=== PATIENT | male | born 1945 | race Caucasian/White ===

== ENCOUNTER 2018-05-07 14:57 | Outpatient (CLI) | payer MEDICARE ==
--- NOTE | 2018-05-08 09:50 | Ultrasound Report ---
Reason: R RENAL CYST NOTED ON T-SPINE MRI AT [facility] Procedure Date: 05/07/2018 Accession Number: [id number] / [id number] Procedure: US - Retroperitoneal CPT Code: FULL RESULT: EXAM: RENAL ULTRASOUND EXAM DATE: 05/07/2018 04:56 PM. CLINICAL HISTORY: Right renal cyst noted on T-spine MRI at [facility]. COMPARISON: CT N/C/A/P 07/18/2006 1:01 PM. TECHNIQUE: Real-time scanning was performed with static images obtained. FINDINGS: Right Kidney: 11.2 cm. Normal echotexture with no stones or hydronephrosis. A thinly septated cyst measuring up to 3.6 cm is seen in the superior pole and does not demonstrate a soft tissue nodular mural component or vascularity by color Doppler. A second 2.2 cm mid pole cyst appears simple. The 2005 CT demonstrates a posterior midpole cyst which does appear simple, consistent with this examination of the midpole cyst. Left Kidney: 10.7 cm. Normal echotexture with no stone or hydronephrosis. A 1.5 cm upper pole septated cyst without septal thickening or vascularity. A midpole 1.2 cm septated cyst without vascularity on color Doppler. Please note that the 2006 CT demonstrates 1 of the 2 left renal cystic lesions which subjectively does demonstrate septal enhancement and measured up to 1.5 cm. Bladder: Bilateral jets seen. The prevoid bladder volume was 315 cc. The postvoid bladder volume was 294 cc. Other: None. IMPRESSION: The 3.6 cm superior pole right renal cyst does not demonstrate concerning features by ultrasound. Both left renal cysts demonstrate no concerning features by ultrasound alone. Based on the comparison to the 2006 CT, at least 1 of the left renal septated cysts remains suspicious. Definite determination of the absence or presence of contrast enhancement requires a noncontrast phase. The right renal 2.2 cm simple cyst is benign and requires no further follow-up. Recommendation: The Bosniak classification is not well validated or universally accepted for classification of renal cysts. Given the benign sonographic appearance, annual follow-up ultrasound represents a cost effective option given that the left renal mass that subjectively still concerns me has not significantly enlarged in size over the past 12 years. Alternatively, definitive characterization by multiphase MRI or multiphase CT with renal mass protocol in hopes of avoiding further follow-up imaging represents an alternative approach. RADIA
== END 2018-05-07 14:58 | disposition home or self-care (01) ==
LOC: DI 14:57
PROVIDERS: ATTEND Physician Assistant
DX: N28.1 Cyst of kidney, acquired (principal)
CPT/HCPCS: 76770

== ENCOUNTER 2019-04-25 09:44 | Outpatient (CLI) | payer MEDICARE ==
[2019-04-25 10:11] LABS: BASOPHILS # (AUTO) 0.1 10^3/uL (0.0-0.1); BASOPHILS % (AUTO) 0.7 %; EOSINOPHILS # (AUTO) 0.2 10^3/uL (0.0-0.7); EOSINOPHILS % (AUTO) 2.5 %; HGB - HEMOGLOBIN 14.6 g/dL (14.0-18.0); LYMPHOCYTES # (AUTO) 1.1 10^3/uL (1.5-3.5); LYMPHOCYTES % (AUTO) 15.2 %; MEAN CORPUSCULAR HEMOGLOBIN 31.7 pg (27.0-31.0); MEAN CORPUSCULAR HGB CONC 33.6 g/dL (32.0-36.0); MEAN CORPUSCULAR VOLUME 94.6 fL (80.0-94.0); MONOCYTES # (AUTO) 0.7 10^3/uL (0.0-1.0); MONOCYTES % (AUTO) 10.2 %; NEUTROPHILS # (AUTO) 5.1 10^3/uL (1.5-6.6); PLT - PLATELET COUNT 194 10^3/uL (130-450); RED CELL DISTRIBUTION WIDTH 12.9 % (12.0-15.0); WHITE BLOOD COUNT 7.2 x10^3/uL (4.8-10.8)
[2019-04-25 10:23] LABS: ALBUMIN 3.8 g/dL (3.2-5.5); ALBUMIN/GLOBULIN RATIO 1.4 (1.0-2.2); BILIRUBIN,TOTAL 0.8 mg/dL (0.2-1.0); TOTAL PROTEIN 6.6 g/dL (6.7-8.2)
[2019-04-25] MEDS ORDERED: IOVERSOL 320 100 ML VIAL IVP ONE ×2 (10:33→10:53)
--- NOTE | 2019-04-25 13:35 | CT Report ---
Reason: Anterior cervical lymphadenopathy Procedure Date: 04/25/2019 Accession Number: [id number] / [id number] Procedure: CT - SOFT TISSUE NECK W CPT Code: FULL RESULT: EXAM: CT SOFT TISSUE NECK WITH CONTRAST. EXAM DATE: 04/25/2019 10:40 AM. HISTORY: Cervical lymphadenopathy. COMPARISONS: None. TECHNIQUE: Routine soft tissue neck CT protocol. Reconstructions: Coronal and sagittal. IV contrast: 80 mL Optiray 320. In accordance with CT protocol optimization, one or more of the following dose reduction techniques were utilized for this exam: automated exposure control, adjustment of mA and/or KV based on patient size, or use of iterative reconstructive technique. FINDINGS: More numerous cervical lymph nodes than expected for age. Many of these nodes are abnormally enlarged or more prominent than average. Submental midline 8 x 10 mm node. 7 x 14 mm left submandibular node. The largest lymph nodes at level 2 on the right are 12 x 15 and 8 x 12 mm. The largest left level 2 node is 7 x 10 mm. Numerous bilateral rounded contour level 5 lymph nodes are present. One of the larger right level 5 nodes is 9 mm in diameter. One of the larger open claims representative left level 5 nodes is 10 mm in diameter. Prominent bilateral retroclavicular nodes. One of the largest on the right is 8 x 12 mm. One of the largest on the left is 7 x 18 mm. Unremarkable contours of the pharynx and larynx. No evidence for asymmetric enhancing or space-occupying lesion or acute mucosal inflammatory process. Nonspecific punctate calcification in the right thyroid gland. This may be accompanied by a subtle region of hypodense nodularity measuring about 12 mm superiorly in the right thyroid lobe. Unremarkable parotid and submandibular salivary glands. Chronic multilevel hypertrophic degenerative cervical spinal spondylosis. Minimal nonspecific paranasal sinus mucosal thickening without air-fluid level. Grossly clear mastoids. IMPRESSION: 1. Mild nonspecific cervical lymphadenopathy. Reactive/inflammatory node prominence may be present but a malignant process cannot be ruled out. 2. Nonspecific 12 mm right thyroid nodule with adjacent calcification suspected, additional ultrasound characterization is suggested. 3. Multilevel degenerative cervical spinal spondylosis most prominent at the C4-C5 and C5-C6 levels. RADIA
== END 2019-04-25 09:45 | disposition home or self-care (01) ==
LOC: LAB 09:44
PROVIDERS: ATTEND Nurse Practitioner Family
DX: R59.0 Localized enlarged lymph nodes (principal); Z85.72 Personal history of non-Hodgkin lymphomas; E04.1 Nontoxic single thyroid nodule; M47.812 Spondylosis without myelopathy or radiculopathy, cervical region
CPT/HCPCS: 36415; 70491; 80053; 85025; Q9967

== ENCOUNTER 2020-04-03 09:06 | Emergency (ER) | payer MEDICARE ==
[2020-04-03] MEDS ORDERED: SODIUM CHLORIDE 0.9% 1,000 ML IV STA (09:22)
[2020-04-03 09:55] LABS: BASOPHILS % (AUTO) 0.4 %; EOSINOPHILS # (AUTO) 0.1 10^3/uL (0.0-0.7); EOSINOPHILS % (AUTO) 1.2 %; HGB - HEMOGLOBIN 11.4 g/dL (14.0-18.0); LYMPHOCYTES # (AUTO) 0.6 10^3/uL (1.5-3.5); LYMPHOCYTES % (AUTO) 6.1 %; MEAN CORPUSCULAR HEMOGLOBIN 29.5 pg (27.0-31.0); MEAN CORPUSCULAR HGB CONC 32.5 g/dL (32.0-36.0); MEAN CORPUSCULAR VOLUME 90.9 fL (80.0-94.0); MEAN PLATELET VOLUME 8.9 fL (7.4-11.4); MONOCYTES # (AUTO) 1.3 10^3/uL (0.0-1.0); NEUTROPHILS # (AUTO) 7.8 10^3/uL (1.5-6.6); NEUTROPHILS % (AUTO) 78.1 %; PLT - PLATELET COUNT 310 10^3/uL (130-450); RED BLOOD COUNT 3.86 10^6/uL (4.70-6.10)
[2020-04-03 10:03] LABS: INR 1.2 (0.8-1.2); PT - PROTHROMBIN TIME 13.1 secs (9.9-12.6)
[2020-04-03 10:12] LABS: ALBUMIN 3.4 g/dL (3.2-5.5); BILIRUBIN,TOTAL 0.6 mg/dL (0.2-1.0); CALCIUM 8.9 mg/dL (8.5-10.3); CREATININE 1.4 mg/dL (0.6-1.2); TOTAL PROTEIN 6.7 g/dL (6.7-8.2)
[2020-04-03 10:33] LABS: BILIRUBIN,URINE NEGATIVE (NEGATIVE); GLUCOSE, URINE (UA) NEGATIVE (NEGATIVE); KETONES,URINE (UA) NEGATIVE (NEGATIVE); LEUKOCYTE ESTERASE, URINE SMALL (NEGATIVE); NITRITE,URINE NEGATIVE (NEGATIVE); OCCULT BLOOD,URINE SMALL (NEGATIVE); PROTEIN,URINE NEGATIVE (NEGATIVE); UROBILINOGEN,URINE 0.2 (NORMAL) E.U./dL (NORMAL)
[2020-04-03 10:35] LABS: CLARITY,URINE HAZY (CLEAR)
[2020-04-03 10:45] LABS: BACTERIA,URINE Rare /HPF (None Seen); RBC,URINE 0-5 /HPF (0-5); SQUAMOUS EPITHELIAL CELL,UR NONE SEEN (<= Few)
--- NOTE | 2020-04-03 10:45 | XRAY Report ---
PROCEDURE: Chest 1 View X-Ray INDICATIONS: chest pain TECHNIQUE: One view of the chest was acquired. COMPARISON: Lung apices on CT neck 04/25/2019. CXR 04/10/2013. FINDINGS: Surgical changes and devices: None. Lungs and pleura: No pleural effusions or pneumothorax. Lungs are clear. Mediastinum: Mediastinal contours appear normal. Heart size is within normal limits. Bones and chest wall: No suspicious bony lesions. Overlying soft tissues appear unremarkable. IMPRESSION: No acute cardiopulmonary abnormality. Reviewed by: Juwan Jameson MD on 04/03/2020 10:44 AM PDT Approved by: Juwan Jameson MD on 04/03/2020 10:44 AM PDT Station ID: [id number]
--- NOTE | 2020-04-03 11:08 | ED Physician Documentation ---
History of Present Illness - Stated complaint Stated Complaint: FEVER AND WEAKNESS - Chief complaint Chief Complaint: Fever - History obtained from History obtained from: Patient - Additonal information Additional information: Patient comes emergency department complaining of fever that started this morning. He is currently being treated for metastatic bladder cancer with immunomodulators therapy, and is a patient of Dr. Calabrese at [facility]/. The pt denies other specific sx. No cough. No dysuria, back pain, new abdominal pain, or new/worse nausea. No sore throat, rhinorrhea, or new SOB. Pt's last infusion was about 1 week ago. states pt has had fatigue for the past several weeks, and has been mostly spending his days in bed, getting up occasionally. Pt has had L leg edema for the past couple of months, and has not had US. Review of Systems Ten Systems: 10 systems reviewed and negative Constitutional: reports: Fever, Fatigue Eyes: reports: Reviewed and negative Ears: reports: Reviewed and negative Nose: reports: Reviewed and negative Throat: reports: Reviewed and negative Cardiac: reports: Reviewed and negative Respiratory: reports: Reviewed and negative GI: reports: Reviewed and negative : reports: Reviewed and negative Skin: reports: Reviewed and negative Musculoskeletal: reports: Reviewed and negative Neurologic: reports: Reviewed and negative Psychiatric: reports: Reviewed and negative Endocrine: reports: Reviewed and negative Immunocompromised: reports: Reviewed and negative PD PAST MEDICAL HISTORY - Present Medications Home Medications: Ambulatory Orders Medication Instructions Recorded Confirmed Sulfamethox/Trimeth 800/160 1 each PO BID #20 tablet 04/03/20 [Bactrim Ds 800/160] - Allergies Allergies/Adverse Reactions: Allergies Allergy/AdvReac Type Severity Reaction Status Date / Time levofloxacin [From Levaquin] Allergy Anaphylaxis Verified 04/03/20 09:14 PD ED PE NORMAL - Vitals Vital signs reviewed: Yes - General General: Alert and oriented X 3, No acute distress, Well developed/nourished - HEENT HEENT: Atraumatic, PERRL, EOMI, Moist mucous membranes - Neck Neck: Supple, no meningeal sign - Cardiac Cardiac: RRR, No murmur - Respiratory Respiratory: No respiratory distress, Clear bilaterally - Abdomen Abdomen: Normal bowel sounds, Soft, Non tender, Non distended - Derm Derm: Normal color, Warm and dry, No rash - Extremities Extremities: No deformity, No calf tenderness / cord, Other (L leg edema) - Neuro Neuro: Alert and oriented X 3, Other (grossly normal. Pt ambulates to bathroom without difficulty.) - Psych Psych: Normal mood, Normal affect Results - Vitals Vitals: Oxygen O2 Source Room air - Labs Labs: Microbiology 04/03/20 09:46 Blood Culture - Preliminary Blood - Left Arm NO GROWTH AFTER 2 DAYS 04/03/20 09:41 Blood Culture - Preliminary Blood - Right Arm NO GROWTH AFTER 2 DAYS 04/03/20 10:20 Urine Culture - Final Urine,Clean Catch Enterococcus Faecalis. Laboratory Tests 04/03/20 04/03/20 04/03/20 09:41 09:41 09:41 WBC 10.0 RBC 3.86 L Hgb 11.4 L Hct 35.1 L MCV 90.9 MCH 29.5 MCHC 32.5 RDW 13.0 Plt Count 310 MPV 8.9 Neut # (Auto) 7.8 H Lymph # (Auto) 0.6 L [place] # (Auto) 1.3 H Eos # (Auto) 0.1 Baso # (Auto) 0.0 Absolute Nucleated RBC 0.00 Nucleated RBC % 0.0 PT 13.1 H INR 1.2 Sodium 137 Potassium 4.1 Chloride 103 Carbon Dioxide 23 Anion Gap 11.0 BUN 19 Creatinine 1.4 H Estimated GFR (MDRD) 49 L Glucose 113 H Lactic Acid Calcium 8.9 Total Bilirubin 0.6 AST 45 H ALT 65 H Alkaline Phosphatase 191 H Total Protein 6.7 Albumin 3.4 Globulin 3.3 Albumin/Globulin Ratio 1.0 Lipase 24 Urine Color Urine Clarity Urine pH Ur Specific [place] Urine Protein Urine Glucose (UA) Urine Ketones Urine Occult Blood Urine Nitrite Urine Bilirubin Urine Urobilinogen Ur Leukocyte Esterase Urine RBC Urine WBC Ur Squamous Epith Cells Urine Bacteria Ur Microscopic Review Urine Culture Comments 04/03/20 04/03/20 09:41 10:20 WBC RBC Hgb Hct MCV MCH MCHC RDW Plt Count MPV Neut # (Auto) Lymph # (Auto) [place] # (Auto) Eos # (Auto) Baso # (Auto) Absolute Nucleated RBC Nucleated RBC % PT INR Sodium Potassium Chloride Carbon Dioxide Anion Gap BUN Creatinine Estimated GFR (MDRD) Glucose Lactic Acid 1.1 Calcium Total Bilirubin AST ALT Alkaline Phosphatase Total Protein Albumin Globulin Albumin/Globulin Ratio Lipase Urine Color YELLOW Urine Clarity HAZY Urine pH 6.0 Ur Specific [place] 1.010 Urine Protein NEGATIVE Urine Glucose (UA) NEGATIVE Urine Ketones NEGATIVE Urine Occult Blood SMALL H Urine Nitrite NEGATIVE Urine Bilirubin NEGATIVE Urine Urobilinogen 0.2 (NORMAL) Ur Leukocyte Esterase SMALL H Urine RBC 0-5 Urine WBC >25 H Ur Squamous Epith Cells NONE SEEN Urine Bacteria Rare Ur Microscopic Review INDICATED Urine Culture Comments INDICATED - Rads (name of study) CXR Radiology: Final report received, EMP read indepedently, See rad report (Neg) venous US L leg Radiology: Final report received, EMP read indepedently, See rad report (No dvt) RUQ US Radiology: Final report received, EMP read indepedently, See rad report PD MEDICAL DECISION MAKING - ED course Complexity details: reviewed old records, reviewed results, re-evaluated patient, considered differential, d/w patient, d/w family ED course: Pt was worked up extensively for his fever, given his status as a cancer pt on immune modulator therapy. CBC showed a normal WBC count. CMP showed mildly elevated LFTs, so abd US was done to assess for cholecystitis, but none was seen, despite the presence of gall stones. CXR was negative. Pt was also assessed for LLE DVT, given his swelling, and US was negative. UA was mildly positive for infection, so pt was treated for this with IV Rocephin. He was found to be feeling better after IV fluids, and was not febrile here. We have discussed the need for antibiotics at home, which have been prescribed. I have also asked the pt and to call as soon as possible to set up a follow-up appt with the pt's oncologist at [facility] in [place]. If the pt at all feels worse despite antibiotics, he should return immediately. Departure - Departure Disposition: 01 Home, Self Care Clinical Impression: Urinary tract infection Qualifiers: Urinary tract infection type: acute cystitis Hematuria presence: without hematuria Qualified Code(s): N30.00 - Acute cystitis without hematuria Condition: Stable Instructions: ED UTI Cystitis Male Prescriptions: Sulfamethox/Trimeth 800/160 [Bactrim Ds 800/160] 1 each PO BID #20 tablet Comments: Your work-up overall looks good. Your white blood cell count is neither too high nor too low. Your urinalysis does show signs of infection, and you have been started in biotics for this. Please take the antibiotics every day, as directed, and please call your doctor for a follow-up appointment early next week. If anything seems to be getting worse, please return to the emergency department. Discharge Date/Time: 04/03/20 14:58
[2020-04-03] MEDS ORDERED: cefTRIAXone 2 GM in SODIUM CHLORIDE 0.9% MINIBAG 100 ML IV STA (12:57)
--- NOTE | 2020-04-03 13:10 | Ultrasound Report ---
PROCEDURE: Abdomen Limited INDICATIONS: R abd discomfort, elevated LFTs TECHNIQUE: Real-time focused scanning was performed of the abdomen, with image documentation. COMPARISON: Correlation is made with prior retroperitoneal ultrasound dated 05/07/2018. FINDINGS: The liver demonstrates normal size and echogenicity. No liver lesions are detected. Multiple gallstones are seen within the gallbladder neck, which do not appear mobile. The largest of these measures 1.5 x 0.7 cm. The gallbladder wall does not appear thickened. There is no specific pe richolecystic fluid. The sonographic Grimes's sign is negative. Mild biliary dilatation is seen, with the common bile duct measuring 8 mm. The pancreas is poorly seen. The right kidney demonstrates normal length at 13.1 cm. There is moderate hydronephrosis seen. Multip le right renal cysts are seen, with the largest 2 measuring 3.8 cm and 3.2 cm, respectively. The proximal aortic aneurysm is seen, which measures up to 4 cm. The mid and distal aorta are seen, o bscured by bowel gas. The IVC is patent. Overall scan quality is limited by bowel gas and the patient's labored breathing. IMPRESSION: Gallstones can be seen within the gallbladder, without additional sonographic signs of cholecystitis. Mild biliary dilatation is seen, measuring 8 mm. Please correlate with patient presentation, clinica l examination findings, and laboratory values, as appropriate. There is moderate right-sided hydronephrosis. Mild proximal abdominal aortic aneurysm seen, measuring up to 4 cm. Simple appearing right renal cysts are incidentally noted. Reviewed by: Augie Champion MD on 04/03/2020 12:08 PM EDER Approved by: Augie Champion MD on 04/03/2020 12:08 PM EDER Station ID: [id number]
--- NOTE | 2020-04-03 13:11 | Ultrasound Report ---
PROCEDURE: Duplex Ext Veins Left INDICATIONS: pain/swelling TECHNIQUE: Real-time imaging, as well as color and pulse Doppler interrogation, were performed of the lower extr emity deep veins from the inguinal ligament to the popliteal fossa. COMPARISON: None. FINDINGS: The deep veins are normally compressible, and free of intraluminal thrombus. Color and pu lse Doppler demonstrate normal phasic intraluminal flow. There is normal augmentation response to di stal compression maneuver. The calf veins are not well seen. IMPRESSION: No findings of deep venous thrombosis are seen. Reviewed by: Augie Champion MD on 04/03/2020 12:09 PM EDER Approved by: Augie Champion MD on 04/03/2020 12:09 PM EDER Station ID: [id number]
[2020-04-03 14:51] VITALS: BP 132/68
== END 2020-04-03 14:58 | disposition home or self-care (01) ==
LOC: ED 09:06
DX: N30.00 Acute cystitis without hematuria (principal); R60.0 Localized edema; R74.8 Abnormal levels of other serum enzymes; K80.20 Calculus of gallbladder without cholecystitis without obstruction; I71.4 Abdominal aortic aneurysm, without rupture; N13.30 Unspecified hydronephrosis; Q61.02 Congenital multiple renal cysts; C67.9 Malignant neoplasm of bladder, unspecified; C79.9 Secondary malignant neoplasm of unspecified site; Z79.899 Other long term (current) drug therapy
CPT/HCPCS: 36415; 71045; 76705; 80053; 81001; 81003; 83605; 83690; 85025; 85610; 87040; 87077; 87086; 87181; 96361; 96365; 99284

== ENCOUNTER 2020-04-23 01:44 | Emergency (ER) | payer MEDICARE ==
[2020-04-23 02:17] LABS: BASOPHILS # (AUTO) 0.1 10^3/uL (0.0-0.1); BASOPHILS % (AUTO) 0.5 %; EOSINOPHILS # (AUTO) 0.1 10^3/uL (0.0-0.7); EOSINOPHILS % (AUTO) 0.8 %; HGB - HEMOGLOBIN 11.6 g/dL (14.0-18.0); LYMPHOCYTES # (AUTO) 1.1 10^3/uL (1.5-3.5); LYMPHOCYTES % (AUTO) 8.5 %; MEAN CORPUSCULAR HGB CONC 33.7 g/dL (32.0-36.0); MEAN CORPUSCULAR VOLUME 88.9 fL (80.0-94.0); MEAN PLATELET VOLUME 9.2 fL (7.4-11.4); MONOCYTES # (AUTO) 1.5 10^3/uL (0.0-1.0); MONOCYTES % (AUTO) 11.6 %; NEUTROPHILS # (AUTO) 9.9 10^3/uL (1.5-6.6); PLT - PLATELET COUNT 325 10^3/uL (130-450); RED BLOOD COUNT 3.87 10^6/uL (4.70-6.10); RED CELL DISTRIBUTION WIDTH 13.9 % (12.0-15.0); WHITE BLOOD COUNT 12.6 x10^3/uL (4.8-10.8)
[2020-04-23 02:19] LABS: BILIRUBIN,URINE NEGATIVE (NEGATIVE); CLARITY,URINE HAZY (CLEAR); GLUCOSE, URINE (UA) NEGATIVE (NEGATIVE); KETONES,URINE (UA) NEGATIVE (NEGATIVE); LEUKOCYTE ESTERASE, URINE MODERATE (NEGATIVE); NITRITE,URINE NEGATIVE (NEGATIVE); OCCULT BLOOD,URINE MODERATE (NEGATIVE); PROTEIN,URINE TRACE mg/dL (NEGATIVE); UROBILINOGEN,URINE 0.2 (NORMAL) E.U./dL (NORMAL)
[2020-04-23 02:23] LABS: INR 1.2 (0.8-1.2); PT - PROTHROMBIN TIME 13.4 secs (9.9-12.6)
--- NOTE | 2020-04-23 02:24 | ED Physician Documentation ---
PD HPI FEVER - Stated complaint Stated Complaint: FEVER - Chief complaint Chief Complaint: Fever - History obtained from History obtained from: Patient, Family - History of Present Illness Timing - onset: Today Timing duration: Minutes Timing details: Abrupt onset, Still present Associated symptoms: Chills, Sweats, NVD (nausea). No: Ear pain, Nasal congestion, Rhinorrhea, Dry cough, Chest pain, Dyspnea, Abdominal pain Contributing factors: Immunocompromised (is on immunomodulator for bladder cancer) Similar symptoms before: Diagnosis (UTI) Recently seen: Clinic - Additional information Additional information: 74-year-old male with a history of metastatic bladder cancer is on an immunomodulator for treatment. He has had an injection yesterday and tonight he has developed fever. He has had this twice previously after his second injection with urinary tract infection as the cause. He was successfully treated.The patient states that he was fatigued after spending the day yesterday in [place] getting this injection and tonight he has developed fever. He does have a urostomy tube into the left kidney and he does not have any specific pain to the left kidney today. He has had this pain previously.The patient was evaluated here in our emergency room 3 weeks ago with urinary tract infection. That urine grew an enterococcus. Review of Systems Constitutional: reports: Fever, Chills, Myalgias, Fatigue, Sweats Eyes: denies: Decreased vision Ears: reports: Loss of hearing (uses aids). denies: Ear pain Nose: denies: Rhinorrhea / runny nose, Congestion Throat: denies: Sore throat Cardiac: denies: Chest pain / pressure, Palpitations Respiratory: denies: Dyspnea, Cough, Wheezing GI: reports: Nausea. denies: Abdominal Pain, Vomiting, Constipation, Diarrhea : reports: Frequency. denies: Dysuria Skin: denies: Rash Musculoskeletal: denies: Neck pain, Back pain, Extremity pain PD PAST MEDICAL HISTORY - Past Medical History Past Medical History: Yes : Other Other Past Medical History: Bladder CA, on immunotherapy - Past Surgical History Past Surgical History: Yes - Present Medications Home Medications: Ambulatory Orders Medication Instructions Recorded Confirmed Sulfamethox/Trimeth 800/160 1 each PO BID #20 tablet 04/03/20 [Bactrim Ds 800/160] Amox/Clav 875/125 [Augmentin] 1 each PO Q12H #20 tablet 04/23/20 - Allergies Allergies/Adverse Reactions: Allergies Allergy/AdvReac Type Severity Reaction Status Date / Time levofloxacin [From Levaquin] Allergy Anaphylaxis Verified 04/23/20 02:09 - Social History Does the pt smoke?: No Smoking Status: Never smoker Does the pt drink ETOH?: No Does the pt have substance abuse?: No - Immunizations Immunizations are current?: Yes - POLST Patient has POLST: No PD ED PE NORMAL - Vitals Vital signs reviewed: Yes (hypertensive) - General General: Alert and oriented X 3, No acute distress, Well developed/nourished - HEENT HEENT: Atraumatic, PERRL, EOMI, Ears normal, Other (dry mucous membranes ) - Neck Neck: Supple, no meningeal sign, No bony TTP - Cardiac Cardiac: RRR, No murmur - Respiratory Respiratory: No respiratory distress, Clear bilaterally - Abdomen Abdomen: Normal bowel sounds, Soft, Non tender, Non distended, No organomegaly - Back Back: No CVA TTP, No spinal TTP, Other (There is a urostomy site in the lower left lateral back.) - Derm Derm: Normal color, Warm and dry, No rash - Extremities Extremities: No deformity, Other (trace edema to the left leg) - Neuro Neuro: Alert and oriented X 3, generation engineering technologist 2-12 intact, No motor deficit, No sensory deficit, Normal speech Eye Opening: Spontaneous Motor: Obeys Commands Verbal: Oriented GCS Score: 15 - Psych Psych: Normal mood, Normal affect Results - Vitals Vitals: Vital Signs - 24 hr 04/23/20 04/23/20 04/23/20 02:05 02:36 03:00 Temperature 37 C 39.2 C H Heart Rate 89 84 80 Respiratory 24 14 14 Rate Blood Pressure 165/86 H 155/84 H 151/75 H O2 Saturation 92 92 92 04/23/20 03:40 Temperature 37.2 C Heart Rate 76 Respiratory Rate Blood Pressure 130/70 O2 Saturation 93 Oxygen O2 Source Room air - Labs Labs: Laboratory Tests 04/23/20 04/23/20 04/23/20 02:04 02:04 02:04 WBC 12.6 H RBC 3.87 L Hgb 11.6 L Hct 34.4 L MCV 88.9 MCH 30.0 MCHC 33.7 RDW 13.9 Plt Count 325 MPV 9.2 Neut # (Auto) 9.9 H Lymph # (Auto) 1.1 L [place] # (Auto) 1.5 H Eos # (Auto) 0.1 Baso # (Auto) 0.1 Absolute Nucleated RBC 0.00 Nucleated RBC % 0.0 PT 13.4 H INR 1.2 APTT 27.1 Sodium 139 Potassium 4.2 Chloride 107 Carbon Dioxide 19 L Anion Gap 13.0 BUN 29 H Creatinine 1.8 H Estimated GFR (MDRD) 37 L Glucose 126 H Lactic Acid Calcium 9.8 Total Bilirubin 1.1 H AST 25 ALT 36 Alkaline Phosphatase 157 H Total Protein 7.2 Albumin 3.7 Globulin 3.5 Albumin/Globulin Ratio 1.1 Lipase 19 L Urine Color Urine Clarity Urine pH Ur Specific [place] Urine Protein Urine Glucose (UA) Urine Ketones Urine Occult Blood Urine Nitrite Urine Bilirubin Urine Urobilinogen Ur Leukocyte Esterase Urine RBC Urine WBC Ur Squamous Epith Cells Urine Bacteria Ur Microscopic Review Urine Culture Comments 04/23/20 04/23/20 04/23/20 02:04 02:05 03:25 WBC RBC Hgb Hct MCV MCH MCHC RDW Plt Count MPV Neut # (Auto) Lymph # (Auto) [place] # (Auto) Eos # (Auto) Baso # (Auto) Absolute Nucleated RBC Nucleated RBC % PT INR APTT Sodium Potassium Chloride Carbon Dioxide Anion Gap BUN Creatinine Estimated GFR (MDRD) Glucose Lactic Acid 1.3 Calcium Total Bilirubin AST ALT Alkaline Phosphatase Total Protein Albumin Globulin Albumin/Globulin Ratio Lipase Urine Color YELLOW YELLOW Urine Clarity HAZY SL. CLOUDY Urine pH 6.0 6.0 Ur Specific [place] <=1.005 1.015 Urine Protein TRACE 100 H Urine Glucose (UA) NEGATIVE NEGATIVE Urine Ketones NEGATIVE NEGATIVE Urine Occult Blood MODERATE H MODERATE H Urine Nitrite NEGATIVE POSITIVE H Urine Bilirubin NEGATIVE NEGATIVE Urine Urobilinogen 0.2 (NORMAL) 0.2 (NORMAL) Ur Leukocyte Esterase MODERATE H MODERATE H Urine RBC 0-5 6-10 H Urine WBC >25 H 11-25 H Ur Squamous Epith Cells RARE Squamous NONE SEEN Urine Bacteria Few Few Ur Microscopic Review INDICATED INDICATED Urine Culture Comments INDICATED INDICATED Procedures - IVC sono (time) 0220 Bedside IVC sono: IVC measures (cm) (1.22), IVC collapsed c insp (cm) (com plete), Dehydration (est 1 liter deficit) PD MEDICAL DECISION MAKING - ED course Complexity details: reviewed old records, reviewed results, re-evaluated patient, considered differential, d/w patient, d/w family ED course: 74-year-old male undergoing treatment for bladder cancer with an immunomodulators has developed fever. He has previously had urine as a source of his fever and he does have a urostomy tube in place. He is found to be mildly dehydrated on interrogation of the inferior vena cava and he is administered a liter of saline as well as a gram of Tylenol. The patient arrives to the emergency department without fever. Tylenol is administered as scheduled for the patient. Once again he does have evidence of urinary tract infection there are 2 separate urine cultures one is from the urinary bladder and the second is from the urostomy tube. Both of these urine sediments indicate evidence of infection. The patient is administered Rocephin 1 g intravenously and we will place him on some Augmentin. Departure - Departure Disposition: 01 Home, Self Care Clinical Impression: Urinary tract infection Qualifiers: Urinary tract infection type: catheter-associated UTI Indwelling urinary catheter type: cystostomy catheter Encounter type: initial encounter Qualified Code(s): T83.510A - Infection and inflammatory reaction due to cystostomy catheter, initial encounter; N39.0 - Urinary tract infection, site not specified Condition: Stable Instructions: ED UTI Cystitis Male Follow-Up: Marilia Baumann PA [Primary Care Provider] - Prescriptions: Amox/Clav 875/125 [Augmentin] 1 each PO Q12H #20 tablet Comments: Today it looks like there is a urinary tract infection that is present in both specimens obtained. The specimens are from different sites and what will likely have different organisms. Both specimens made the great for culture and results should be available in 2 to 3 days. If you are not improving or you are worsening return to the ED for re-evaluation.
[2020-04-23] MEDS ORDERED: ACETAMINOPHEN 500 MG TABLET PO STA (02:26)
[2020-04-23] MEDS ORDERED: SODIUM CHLORIDE 0.9% 1,000 ML IV STA (02:28)
[2020-04-23 02:30] LABS: ALBUMIN 3.7 g/dL (3.2-5.5); ALBUMIN/GLOBULIN RATIO 1.1 (1.0-2.2); BILIRUBIN,TOTAL 1.1 mg/dL (0.2-1.0); CALCIUM 9.8 mg/dL (8.5-10.3); CREATININE 1.8 mg/dL (0.6-1.2); TOTAL PROTEIN 7.2 g/dL (6.7-8.2)
[2020-04-23 02:31] LABS: PARTIAL THROMBOPLASTIN TIME 27.1 secs (24.9-33.3)
[2020-04-23 02:32] LABS: BACTERIA,URINE Few /HPF (None Seen); RBC,URINE 0-5 /HPF (0-5); SQUAMOUS EPITHELIAL CELL,UR RARE Squamous (<= Few)
[2020-04-23] MEDS ORDERED: cefTRIAXone 1 GM in SODIUM CHLORIDE 0.9% MINIBAG 100 ML IV STA (03:11)
[2020-04-23] MEDS ORDERED: cefTRIAXone 1 GM VIAL ONE (03:22)
[2020-04-23 03:34] LABS: BILIRUBIN,URINE NEGATIVE (NEGATIVE); GLUCOSE, URINE (UA) NEGATIVE (NEGATIVE); KETONES,URINE (UA) NEGATIVE (NEGATIVE); LEUKOCYTE ESTERASE, URINE MODERATE (NEGATIVE); NITRITE,URINE POSITIVE (NEGATIVE); OCCULT BLOOD,URINE MODERATE (NEGATIVE); PROTEIN,URINE 100 mg/dL (NEGATIVE); UROBILINOGEN,URINE 0.2 (NORMAL) E.U./dL (NORMAL)
[2020-04-23 03:36] LABS: CLARITY,URINE SL. CLOUDY (CLEAR)
[2020-04-23 03:42] LABS: BACTERIA,URINE Few /HPF (None Seen); SQUAMOUS EPITHELIAL CELL,UR NONE SEEN (<= Few)
[2020-04-23 04:15] VITALS: BP 132/81
--- NOTE | 2020-04-23 08:45 | XRAY Report ---
PROCEDURE: Chest 1 View X-Ray INDICATIONS: fever, immunocompromised TECHNIQUE: One view of the chest was acquired. COMPARISON: 04/03/2020 FINDINGS: Surgical changes and devices: None. Lungs and pleura: No pleural effusions or pneumothorax. Chronically coarse interstitial markings rdoo aterally. No new consolidations. Mediastinum: Mediastinal contours appear normal. Heart size is enlarged, stable. Bones and chest wall: No suspicious bony lesions. Overlying soft tissues appear unremarkable. IMPRESSION: 1. Chronically coarse interstitial markings. This may reflect underlying fibrosis or interstitial chino g disease. 2. Stable mild cardiomegaly without radiographic evidence of CHF. 3. Concordant with preliminary report. Reviewed by: Kristie Guevara MD on 04/23/2020 8:44 AM PDT Approved by: Kristie Guevara MD on 04/23/2020 8:44 AM PDT Station ID: [id number]
== END 2020-04-23 04:15 | disposition home or self-care (01) ==
LOC: ED 01:44
DX: T83.510A Infection and inflammatory reaction due to cystostomy catheter, initial encounter (principal); N39.0 Urinary tract infection, site not specified; Y84.6 Urinary catheterization as the cause of abnormal reaction of the patient, or of later complication, without mention of misadventure at the time of the procedure; E86.0 Dehydration; C67.9 Malignant neoplasm of bladder, unspecified; C79.9 Secondary malignant neoplasm of unspecified site
CPT/HCPCS: 36415; 71045; 80053; 81001; 83605; 83690; 85025; 85610; 85730; 87040; 87077; 87086; 87181; 96365; 99283; 99284; A9270; 81003

== ENCOUNTER 2020-04-25 16:49 | Emergency (ER) | payer MEDICARE ==
--- NOTE | 2020-04-25 17:20 | ED Physician Documentation ---
History of Present Illness - Stated complaint Stated Complaint: HIGH BP - Chief complaint Chief Complaint: Cardiac - History obtained from History obtained from: Patient, Family - Additonal information Additional information: This is a very pleasant 74-year-old gentleman with history of bladder cancer on immunomodulating therapy. He has a nephrostomy in place. He has high blood pressure and is on atenolol for same. Over the last few days they have noticed asymptomatic hypertension in the range of 170-180/80 or so. There is no associated chest pain, or trouble breathing. Review of Systems Constitutional: reports: Reviewed and negative Eyes: reports: Reviewed and negative Ears: reports: Reviewed and negative Nose: reports: Reviewed and negative PD PAST MEDICAL HISTORY - Past Medical History Past Medical History: Yes Cardiovascular: None Respiratory: None Neuro: None Endocrine/Autoimmune: None GI: None : None, Other HEENT: None Psych: None Musculoskeletal: None Derm: None - Past Surgical History Past Surgical History: Yes - Present Medications Home Medications: Ambulatory Orders Medication Instructions Recorded Confirmed Sulfamethox/Trimeth 800/160 1 each PO BID #20 tablet 04/03/20 04/25/20 [Bactrim Ds 800/160] Amox/Clav 875/125 [Augmentin] 1 each PO Q12H #20 tablet 04/23/20 04/25/20 Atenolol [Tenormin] 1 tab PO DAILY 04/25/20 04/25/20 Lisinopril [Prinivil] 10 mg PO DAILY #60 tablet 04/25/20 Meloxicam [Mobic] 1 tab PO DAILY 04/25/20 04/25/20 Omeprazole 1 cap PO DAILY 04/25/20 04/25/20 Oxycodone HCl 1 tab PO Q6HR PRN 04/25/20 04/25/20 predniSONE [Deltasone] 4 tab PO DAILY 7 Days tablet 04/25/20 - Allergies Allergies/Adverse Reactions: Allergies Allergy/AdvReac Type Severity Reaction Status Date / Time levofloxacin [From Levaquin] Allergy Anaphylaxis Verified 04/25/20 16:53 - Social History Does the pt smoke?: No Smoking Status: Never smoker Does the pt drink ETOH?: No Does the pt have substance abuse?: No - Immunizations Immunizations are current?: Yes - POLST Patient has POLST: No PD ED PE NORMAL - Vitals Vital signs reviewed: Yes - General General: Alert and oriented X 3, No acute distress - Cardiac Cardiac: RRR, No murmur - Respiratory Respiratory: No respiratory distress, Clear bilaterally - Abdomen Abdomen: Non tender - Extremities Extremities: Other (Mild pedal edema, symmetric, nontender calves) - Neuro Neuro: Alert and oriented X 3, Normal speech Results - Vitals Vitals: Vital Signs - 24 hr 04/25/20 04/25/20 16:53 16:57 Temperature 36.5 C Heart Rate 64 68 Respiratory 16 16 Rate Blood Pressure 183/90 H 142/68 H O2 Saturation 94 99 Oxygen O2 Source Room air - EKG (time done) 1705 Rate: Rate (enter#) (63) Rhythm: NSR [place]: Normal Intervals: Normal [place] QRS: Normal Ischemia: Normal ST segments - Labs Labs: Laboratory Tests 04/25/20 04/25/20 17:22 17:22 WBC 9.0 RBC 3.67 L Hgb 10.9 L Hct 32.9 L MCV 89.6 MCH 29.7 MCHC 33.1 RDW 13.9 Plt Count 295 MPV 9.4 Neut # (Auto) 6.7 H Lymph # (Auto) 0.7 L [place] # (Auto) 1.2 H Eos # (Auto) 0.3 Baso # (Auto) 0.0 Absolute Nucleated RBC 0.00 Nucleated RBC % 0.0 Sodium 137 Potassium 3.9 Chloride 106 Carbon Dioxide 19 L Anion Gap 12.0 BUN 27 H Creatinine 1.8 H Estimated GFR (MDRD) 37 L Glucose 135 H Calcium 8.5 PD MEDICAL DECISION MAKING - ED course ED course: 74-year-old gentleman on Keytruda for bladder cancer and has known hydronephrosis presents with asymptomatic elevated blood pressure. No evidence of endorgan damage on exam, but note made that his creatinine today is 1.8. shows me previous labs in the [facility] from 4 days ago at which point his creatinine was 1.47. Differential diagnosis includes but is not limited to Keytruda related kidney injury, renal artery stenosis from metastases . An ultrasound was ordered. A call was placed to [facility] to discuss the potential for Keytruda related injury. 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 Recommended starting steroids, note that up-to-date recommends prednisone at a dose of 1-2 mg per kg per day and then to follow-up with his personal oncologist on Monday. Departure - Departure Disposition: Home, Self Care Clinical Impression: Accelerated hypertension Condition: Good Record reviewed to determine appropriate education?: Yes Instructions: ED HTN Established Prescriptions: predniSONE [Deltasone] 4 tab PO DAILY 7 Days tablet Lisinopril [Prinivil] 10 mg PO DAILY #60 tablet Comments: You were seen today for elevated blood pressure without symptoms, I think this may be due to your chemotherapeutic agent. Talk with your oncologist on Monday, let him know that you were seen here and your creatinine was 1.8, it was 1.47 the other day at [facility]. We also ordered an ultrasound of your kidneys to check your renal arteries but were unable to do it tonight because this is a study that requires 8 hours of fasting before hand. He may choose to order this as well. Return if worsening. Fill the new blood pressure medicine as well as the steroids tomorrow. You got a first dose here. After couple of days if the 10 mg of lisinopril is insufficient to get your blood pressure below 150/80, you can double it to 20 mg a day.
[2020-04-25 17:37] LABS: CALCIUM 8.5 mg/dL (8.5-10.3); CREATININE 1.8 mg/dL (0.6-1.2)
[2020-04-25 18:20] LABS: BASOPHILS % (AUTO) 0.4 %; EOSINOPHILS # (AUTO) 0.3 10^3/uL (0.0-0.7); EOSINOPHILS % (AUTO) 2.8 %; HGB - HEMOGLOBIN 10.9 g/dL (14.0-18.0); LYMPHOCYTES # (AUTO) 0.7 10^3/uL (1.5-3.5); LYMPHOCYTES % (AUTO) 7.5 %; MEAN CORPUSCULAR HEMOGLOBIN 29.7 pg (27.0-31.0); MEAN CORPUSCULAR HGB CONC 33.1 g/dL (32.0-36.0); MEAN CORPUSCULAR VOLUME 89.6 fL (80.0-94.0); MEAN PLATELET VOLUME 9.4 fL (7.4-11.4); MONOCYTES # (AUTO) 1.2 10^3/uL (0.0-1.0); MONOCYTES % (AUTO) 13.8 %; NEUTROPHILS # (AUTO) 6.7 10^3/uL (1.5-6.6); NEUTROPHILS % (AUTO) 74.8 %; PLT - PLATELET COUNT 295 10^3/uL (130-450); RED BLOOD COUNT 3.67 10^6/uL (4.70-6.10); RED CELL DISTRIBUTION WIDTH 13.9 % (12.0-15.0)
[2020-04-25] MEDS ORDERED: predniSONE 20 MG TABLET PO STA (19:07)
[2020-04-25] MEDS ORDERED: lisinopriL 5 MG TABLET PO STA (19:07)
[2020-04-25 19:27] VITALS: BP 191/90
== END 2020-04-25 19:27 | disposition home or self-care (01) ==
LOC: ED 16:49
DX: I10 Essential (primary) hypertension (principal); C67.9 Malignant neoplasm of bladder, unspecified; Z79.899 Other long term (current) drug therapy; N13.30 Unspecified hydronephrosis; R79.89 Other specified abnormal findings of blood chemistry
CPT/HCPCS: 36415; 80048; 85025; 93005; 99283; 99284; A9270; J7512

== ENCOUNTER 2020-04-28 11:24 | Outpatient (CLI) | payer MEDICARE ==
[2020-04-28 11:48] LABS: BASOPHILS % (AUTO) 0.2 %; EOSINOPHILS % (AUTO) 0.2 %; HGB - HEMOGLOBIN 11.4 g/dL (14.0-18.0); LYMPHOCYTES # (AUTO) 0.9 10^3/uL (1.5-3.5); MEAN CORPUSCULAR HEMOGLOBIN 29.5 pg (27.0-31.0); MEAN CORPUSCULAR HGB CONC 33.3 g/dL (32.0-36.0); MEAN CORPUSCULAR VOLUME 88.4 fL (80.0-94.0); MEAN PLATELET VOLUME 8.8 fL (7.4-11.4); MONOCYTES # (AUTO) 1.3 10^3/uL (0.0-1.0); MONOCYTES % (AUTO) 8.1 %; NEUTROPHILS % (AUTO) 84.4 %; PLT - PLATELET COUNT 366 10^3/uL (130-450); RED BLOOD COUNT 3.87 10^6/uL (4.70-6.10); RED CELL DISTRIBUTION WIDTH 14.1 % (12.0-15.0); WHITE BLOOD COUNT 15.4 x10^3/uL (4.8-10.8)
[2020-04-28 12:01] LABS: ALBUMIN 3.5 g/dL (3.2-5.5); ALBUMIN/GLOBULIN RATIO 1.1 (1.0-2.2); BILIRUBIN,TOTAL 0.6 mg/dL (0.2-1.0); CALCIUM 9.2 mg/dL (8.5-10.3); CREATININE 1.5 mg/dL (0.6-1.2); TOTAL PROTEIN 6.7 g/dL (6.7-8.2)
== END 2020-04-28 11:25 | disposition home or self-care (01) ==
LOC: LAB 11:24
PROVIDERS: ATTEND Nurse Practitioner Gerontology
DX: C67.9 Malignant neoplasm of bladder, unspecified (principal)
CPT/HCPCS: 36415; 80053; 85025

== ENCOUNTER 2020-05-08 10:46 | Outpatient (CLI) | payer MEDICARE ==
[2020-05-08 11:07] LABS: ALBUMIN 3.5 g/dL (3.2-5.5); ALBUMIN/GLOBULIN RATIO 1.1 (1.0-2.2); BILIRUBIN,TOTAL 0.7 mg/dL (0.2-1.0); CREATININE 1.9 mg/dL (0.6-1.2); TOTAL PROTEIN 6.8 g/dL (6.7-8.2)
[2020-05-08 11:09] LABS: BASOPHILS # (AUTO) 0.1 10^3/uL (0.0-0.1); BASOPHILS % (AUTO) 0.5 %; EOSINOPHILS # (AUTO) 0.2 10^3/uL (0.0-0.7); EOSINOPHILS % (AUTO) 1.4 %; HGB - HEMOGLOBIN 11.7 g/dL (14.0-18.0); LYMPHOCYTES % (AUTO) 8.2 %; MEAN CORPUSCULAR HEMOGLOBIN 29.7 pg (27.0-31.0); MEAN CORPUSCULAR HGB CONC 32.5 g/dL (32.0-36.0); MEAN CORPUSCULAR VOLUME 91.4 fL (80.0-94.0); MEAN PLATELET VOLUME 8.9 fL (7.4-11.4); MONOCYTES # (AUTO) 1.5 10^3/uL (0.0-1.0); MONOCYTES % (AUTO) 12.8 %; NEUTROPHILS # (AUTO) 8.9 10^3/uL (1.5-6.6); NEUTROPHILS % (AUTO) 76.5 %; PLT - PLATELET COUNT 255 10^3/uL (130-450); RED BLOOD COUNT 3.94 10^6/uL (4.70-6.10); RED CELL DISTRIBUTION WIDTH 14.6 % (12.0-15.0); WHITE BLOOD COUNT 11.6 x10^3/uL (4.8-10.8)
== END 2020-05-08 10:47 | disposition home or self-care (01) ==
LOC: LAB 10:46
PROVIDERS: ATTEND Nurse Practitioner Gerontology
DX: C67.9 Malignant neoplasm of bladder, unspecified (principal)
CPT/HCPCS: 36415; 80053; 85025

== ENCOUNTER 2020-05-15 11:31 | Emergency (ER) | payer MEDICARE, OTHER ==
--- NOTE | 2020-05-15 12:16 | ED Physician Documentation ---
PD HPI ABD PAIN - Stated complaint Stated Complaint: ABD PX - Chief complaint Chief Complaint: Abd Pain - History obtained from History obtained from: Patient, Family - Additional information Additional information: This is a 74-year-old gentleman who is undergoing treatment for bladder cancer through [facility]. Recently admitted for pyelonephritis discharged 2 days ago, on ceftaz edema via a right arm PICC line. He has had problems with renal function and obstruction of his urinary system and currently has bilateral nephrostomies in place. Urinates very little through his urethra. Presents with intermittent generally worsening central lower abdominal pain especially at night. It is associated with constipation but he has been moving his bowels. There is no nausea or fevers. Declines pain medication on initial evaluation as right now it is not too bad. Also describes bloating when the pain is bad. Review of Systems Ten Systems: 10 systems reviewed and negative Constitutional: reports: Reviewed and negative Nose: reports: Reviewed and negative Throat: reports: Reviewed and negative Cardiac: reports: Reviewed and negative PD PAST MEDICAL HISTORY - Past Medical History Cardiovascular: None Respiratory: None Neuro: None Endocrine/Autoimmune: None GI: None : Renal insuffiency, Other HEENT: None Psych: None Musculoskeletal: None Derm: None Other Past Medical History: bladder cancer - Past Surgical History Past Surgical History: Yes - Present Medications Home Medications: Ambulatory Orders Medication Instructions Recorded Confirmed Sulfamethox/Trimeth 800/160 1 each PO BID #20 tablet 04/03/20 04/25/20 [Bactrim Ds 800/160] Amox/Clav 875/125 [Augmentin] 1 each PO Q12H #20 tablet 04/23/20 04/25/20 Atenolol [Tenormin] 1 tab PO DAILY 04/25/20 04/25/20 Meloxicam [Mobic] 1 tab PO DAILY 04/25/20 04/25/20 Omeprazole 1 cap PO DAILY 04/25/20 04/25/20 Oxycodone HCl 1 tab PO Q6HR PRN 04/25/20 04/25/20 Amlodipine Besylate [Norvasc] 05/15/20 Dicyclomine HCl 20 mg PO QID PRN #30 tablet 05/15/20 HYDROmorphone [Dilaudid] 1 - 2 tab PO Q4H PRN #20 tablet 05/15/20 Ursodiol [Wendi] 250 mg PO BID #180 tablet 05/15/20 polyethylene glycoL 3350 [Miralax] 05/15/20 - Allergies Allergies/Adverse Reactions: Allergies Allergy/AdvReac Type Severity Reaction Status Date / Time levofloxacin [From Levaquin] Allergy Anaphylaxis Verified 05/15/20 11:56 - Social History Does the pt smoke?: No Smoking Status: Never smoker Does the pt drink ETOH?: No Does the pt have substance abuse?: No - Immunizations Immunizations are current?: Yes - POLST Patient has POLST: No PD ED PE NORMAL - Vitals Vital signs reviewed: Yes - General General: Alert and oriented X 3, No acute distress - HEENT HEENT: PERRL, EOMI - Neck Neck: Supple, no meningeal sign, No bony TTP - Cardiac Cardiac: RRR, No murmur - Respiratory Respiratory: No respiratory distress, Clear bilaterally - Abdomen Abdomen: Other (He does have some modest tenderness in the left lower quadrant with hyperactive bowel tones but no surgical signs. Nephrostomies in place.) - Derm Derm: Normal color, Warm and dry - Neuro Neuro: Alert and oriented X 3, Normal speech - Psych Psych: Normal mood, Normal affect Results - Vitals Vitals: Vital Signs - 24 hr 05/15/20 05/15/20 11:50 14:05 Temperature 36.8 C 37.2 C Heart Rate 68 56 L Respiratory 18 20 Rate Blood Pressure 136/78 H 132/75 H O2 Saturation 98 97 Oxygen O2 Source Room air - Labs Labs: Laboratory Tests 05/15/20 05/15/20 12:15 12:15 WBC 9.9 RBC 4.12 L Hgb 12.0 L Hct 36.9 L MCV 89.6 MCH 29.1 MCHC 32.5 RDW 14.5 Plt Count 323 MPV 8.9 Neut # (Auto) 7.8 H Lymph # (Auto) 0.8 L [place] # (Auto) 1.1 H Eos # (Auto) 0.1 Baso # (Auto) 0.0 Absolute Nucleated RBC 0.00 Nucleated RBC % 0.0 Sodium 137 Potassium 3.6 Chloride 100 L Carbon Dioxide 25 Anion Gap 12.0 BUN 20 Creatinine 1.3 H Estimated GFR (MDRD) 54 L Glucose 116 H Calcium 9.2 Total Bilirubin 0.8 AST 17 ALT 16 Alkaline Phosphatase 102 Total Protein 7.2 Albumin 3.6 Globulin 3.6 Albumin/Globulin Ratio 1.0 Lipase 20 L - Rads (name of study) CT A/P Radiology: EMP read contemporaneously PD MEDICAL DECISION MAKING - ED course ED course: 74-year-old gentleman undergoing cancer treatment presents with episodic severe abdominal pain especially in the middle of the night. Declined pain medication while here. CT shows gallstones and numerous other findings, I suspect the gallstones may be causative of his intermittent severe pain. Labs are reassuring. We will start him on some ursodiol, but the limitations of this were discussed with him and his and give him some extra pain medication, he understands the need to discuss this with his oncologist. Departure - Departure Disposition: 01 Home, Self Care Clinical Impression: Abdominal pain Qualifiers: Abdominal location: unspecified location Qualified Code(s): R10.9 - Unspecified abdominal pain Gallstone Qualifiers: Cholecystitis presence: without cholecystitis Biliary obstruction: without biliary obstruction Qualified Code(s): K80.20 - Calculus of gallbladder without cholecystitis without obstruction Condition: Good Record reviewed to determine appropriate education?: Yes Instructions: Gallstones Dc, Abdominal Pain Prescriptions: Dicyclomine HCl 20 mg PO QID PRN #30 tablet PRN Reason: Abdominal Pain HYDROmorphone [Dilaudid] 1 - 2 tab PO Q4H PRN #20 tablet PRN Reason: Abdominal Pain Ursodiol [Wendi] 250 mg PO BID #180 tablet Comments: As discussed, I suspect the pain may be related to the gallstones, you should discuss potential surgery with your oncologist who may want to perform other studies or other conservative measures prior to considering surgery given the ongoing cancer, and complications related to that. Return if worsening.
[2020-05-15] MEDS ORDERED: IOVERSOL 320 50 ML VIAL ONE (12:26)
[2020-05-15] MEDS ORDERED: IOVERSOL 320 100 ML VIAL IVP ONE ×2 (12:26→13:53)
[2020-05-15 12:29] LABS: BASOPHILS % (AUTO) 0.3 %; EOSINOPHILS # (AUTO) 0.1 10^3/uL (0.0-0.7); EOSINOPHILS % (AUTO) 0.9 %; LYMPHOCYTES # (AUTO) 0.8 10^3/uL (1.5-3.5); LYMPHOCYTES % (AUTO) 8.4 %; MEAN CORPUSCULAR HEMOGLOBIN 29.1 pg (27.0-31.0); MEAN CORPUSCULAR HGB CONC 32.5 g/dL (32.0-36.0); MEAN CORPUSCULAR VOLUME 89.6 fL (80.0-94.0); MEAN PLATELET VOLUME 8.9 fL (7.4-11.4); MONOCYTES # (AUTO) 1.1 10^3/uL (0.0-1.0); MONOCYTES % (AUTO) 11.1 %; NEUTROPHILS # (AUTO) 7.8 10^3/uL (1.5-6.6); NEUTROPHILS % (AUTO) 78.7 %; PLT - PLATELET COUNT 323 10^3/uL (130-450); RED BLOOD COUNT 4.12 10^6/uL (4.70-6.10); RED CELL DISTRIBUTION WIDTH 14.5 % (12.0-15.0); WHITE BLOOD COUNT 9.9 x10^3/uL (4.8-10.8)
[2020-05-15 12:41] LABS: ALBUMIN 3.6 g/dL (3.2-5.5); BILIRUBIN,TOTAL 0.8 mg/dL (0.2-1.0); CALCIUM 9.2 mg/dL (8.5-10.3); CREATININE 1.3 mg/dL (0.6-1.2); TOTAL PROTEIN 7.2 g/dL (6.7-8.2)
[2020-05-15] MEDS ORDERED: IOVERSOL 320 50 ML VIAL PO ONE (13:54)
--- NOTE | 2020-05-15 14:58 | CT Report ---
PROCEDURE: Abdomen/Pelvis W INDICATIONS: abd pain, IV and PO CONTRAST: IV CONTRAST: Optiray 320 ml: 100 PO CONTRAST: Optiray 320 ml50 TECHNIQUE: After the administration of IV and oral contrast, 5 mm thick sections acquired from the diaphragms to the symphysis. 5 mm thick coronal and sagittal reformats were acquired. For radiation dose reducti on, the following was used: automated exposure control, adjustment of mA and/or kV according to julio ent size. COMPARISON: None. FINDINGS: Image quality: Excellent. ABDOMEN: Lung bases: Bibasilar dependent atelectasis is seen. Heart size is enlarged, no pericardial effusion. Solid organs: Liver and spleen are normal in size and enhancement. Gallbladder contains 3 calcified stones in its dependent portion. No gross gallbladder wall thickening or pericholecystic fluid. Josue iary system is non dilated. No gross abnormality is seen in atrophic appearing pancreas. No adrenal n odules. Kidneys demonstrate normal size. Mild heterogeneous bilateral renal parenchymal enhancement is seen. There are suggestion of bilateral renal cysts. Bilateral percutaneous nephrostomy tubes are seen. No significant hydronephrosis is seen. Peritoneum and bowel: There is no evidence of bowel obstruction. No gross bowel wall thickening or me senteric fat stranding. No free fluid or free air. Nodes and vessels: No retroperitoneal or mesenteric adenopathy by size criteria. Aorta and inferior vena cava are normal in size. Miscellaneous: No ventral hernias. PELVIS: Genitourinary: Diffuse bladder wall thickening is seen with suggestion of soft tissue mass involving left posterior inferior bladder wall likely related to patient's known diagnosis of bladder cancer. E nlarged prostate gland is seen with possible fiduciary markers seen in the prostate gland. Miscellaneous: No inguinal hernias. Subcentimeter lymph nodes are seen in bilateral inguinal region measures up to 7 mm in short axis diameter. Bones: No suspicious bony lesions. Chronic appearing mild anterior wedge compression deformity at L1 level is seen. IMPRESSION: 1. Diffuse bladder wall thickening with suggestion of left lateral and posterior inferior bladder wal l mass consistent with patient's known history of bladder cancer. Bilateral percutaneous nephrostomy tube in place. Mild heterogeneous contrast enhancement of bilateral kidneys and suggestion of bilater al renal cysts. No definite enhancing renal lesion or significant hydronephrosis. 2. No evidence of bowel obstruction. No gross abnormal bowel wall thickening. No free fluid or free a ir. 3. Subcentimeter lymph nodes in bilateral inguinal region. No peritoneal or retroperitoneal lymphaden opathy. 4. Cholelithiasis, no CT evidence of acute cholecystitis. 5. Chronic appearing mild anterior wedge compression deformity at L1 level. Reviewed by: Bib Mendez MD on 05/15/2020 2:57 PM PDT Approved by: Bib Mendez MD on 05/15/2020 2:57 PM PDT Station ID: [id number]
[2020-05-15 15:30] VITALS: BP 149/80
== END 2020-05-15 15:45 | disposition home or self-care (01) ==
LOC: EDUNIT# → ED 11:31
DX: R10.32 Left lower quadrant pain (principal); K80.20 Calculus of gallbladder without cholecystitis without obstruction; C67.4 Malignant neoplasm of posterior wall of bladder; Z93.6 Other artificial openings of urinary tract status
CPT/HCPCS: 36415; 74177; 80053; 83690; 85025; 99284; 99285; Q9967

== ENCOUNTER 2020-06-14 10:21 | Emergency (ER) | payer MEDICARE ==
[2020-06-14 11:06] LABS: BILIRUBIN,URINE NEGATIVE (NEGATIVE); GLUCOSE, URINE (UA) NEGATIVE (NEGATIVE); KETONES,URINE (UA) NEGATIVE (NEGATIVE); LEUKOCYTE ESTERASE, URINE LARGE (NEGATIVE); NITRITE,URINE NEGATIVE (NEGATIVE); OCCULT BLOOD,URINE LARGE (NEGATIVE); PH,URINE 7.5 PH (5.0-7.5); PROTEIN,URINE 100 mg/dL (NEGATIVE); UROBILINOGEN,URINE 0.2 (NORMAL) E.U./dL (NORMAL)
[2020-06-14 11:19] LABS: CLARITY,URINE HAZY (CLEAR)
[2020-06-14 11:22] LABS: RBC,URINE TNTC /HPF (0-5); SQUAMOUS EPITHELIAL CELL,UR NONE SEEN (<= Few); WBC CLUMPS,URINE PRESENT
[2020-06-14 11:23] LABS: BACTERIA,URINE Moderate /HPF (None Seen)
[2020-06-14 11:26] LABS: BILIRUBIN,URINE NEGATIVE (NEGATIVE); GLUCOSE, URINE (UA) NEGATIVE (NEGATIVE); KETONES,URINE (UA) NEGATIVE (NEGATIVE); LEUKOCYTE ESTERASE, URINE LARGE (NEGATIVE); NITRITE,URINE NEGATIVE (NEGATIVE); OCCULT BLOOD,URINE SMALL (NEGATIVE); PROTEIN,URINE 100 mg/dL (NEGATIVE); UROBILINOGEN,URINE 0.2 (NORMAL) E.U./dL (NORMAL)
[2020-06-14 11:29] LABS: CLARITY,URINE CLOUDY (CLEAR)
[2020-06-14 11:36] LABS: BACTERIA,URINE Moderate /HPF (None Seen); RBC,URINE 0-5 /HPF (0-5); SQUAMOUS EPITHELIAL CELL,UR NONE SEEN (<= Few); WBC CLUMPS,URINE PRESENT
[2020-06-14 11:42] LABS: BASOPHILS % (AUTO) 0.4 %; EOSINOPHILS % (AUTO) 0.3 %; HGB - HEMOGLOBIN 10.9 g/dL (14.0-18.0); LYMPHOCYTES # (AUTO) 0.6 10^3/uL (1.5-3.5); MEAN CORPUSCULAR HGB CONC 32.8 g/dL (32.0-36.0); MEAN CORPUSCULAR VOLUME 91.5 fL (80.0-94.0); MEAN PLATELET VOLUME 8.5 fL (7.4-11.4); MONOCYTES # (AUTO) 0.9 10^3/uL (0.0-1.0); MONOCYTES % (AUTO) 12.9 %; NEUTROPHILS # (AUTO) 5.6 10^3/uL (1.5-6.6); NEUTROPHILS % (AUTO) 77.3 %; PLT - PLATELET COUNT 290 10^3/uL (130-450); RED BLOOD COUNT 3.63 10^6/uL (4.70-6.10); RED CELL DISTRIBUTION WIDTH 15.9 % (12.0-15.0); WHITE BLOOD COUNT 7.3 x10^3/uL (4.8-10.8)
[2020-06-14 11:51] LABS: ALBUMIN 3.3 g/dL (3.2-5.5); ALBUMIN/GLOBULIN RATIO 0.9 (1.0-2.2); BILIRUBIN,TOTAL 0.8 mg/dL (0.2-1.0); CREATININE 1.3 mg/dL (0.6-1.2); TOTAL PROTEIN 6.8 g/dL (6.7-8.2)
[2020-06-14] MEDS ORDERED: cefTAZidime 2 GM in SODIUM CHLORIDE 0.9% MINIBAG 100 ML IV STA (12:16)
--- NOTE | 2020-06-14 13:56 | ED Physician Documentation ---
History of Present Illness - Stated complaint Stated Complaint: FEVER - Chief complaint Chief Complaint: Fever - History obtained from History obtained from: Patient, Family - Additonal information Additional information: Emergency department by his who states that the patient was not acting like himself yesterday and had a fever of 100.4 orally. Patient, according to was less responsive than usual and seemed more tired. Patient states he has not noticed any specific symptoms. No pain that is new. No fevers or chills. No nausea or vomiting. No change in bowel habits. The patient has bilateral nephrostomy tubes, secondary to renal cell carcinoma that is invasive. He has had multiple urinary tract infections in the past. No other complaints at this time. No cough or shortness of breath. Review of Systems Ten Systems: 10 systems reviewed and negative Constitutional: reports: Fever. denies: Chills, Myalgias Eyes: reports: Reviewed and negative Ears: reports: Reviewed and negative Nose: reports: Reviewed and negative Throat: reports: Reviewed and negative Cardiac: reports: Reviewed and negative Respiratory: reports: Reviewed and negative GI: reports: Reviewed and negative : reports: Reviewed and negative Skin: reports: Reviewed and negative Musculoskeletal: reports: Reviewed and negative Neurologic: reports: Reviewed and negative Psychiatric: reports: Reviewed and negative Endocrine: reports: Reviewed and negative Immunocompromised: reports: Reviewed and negative PD PAST MEDICAL HISTORY - Past Medical History Cardiovascular: None Respiratory: None Neuro: None Endocrine/Autoimmune: None GI: None : Renal insuffiency, Other HEENT: None Psych: None Musculoskeletal: None Derm: None - Past Surgical History Past Surgical History: Yes - Present Medications Home Medications: Ambulatory Orders Medication Instructions Recorded Confirmed Sulfamethox/Trimeth 800/160 1 each PO BID #20 tablet 04/03/20 04/25/20 [Bactrim Ds 800/160] Amox/Clav 875/125 [Augmentin] 1 each PO Q12H #20 tablet 04/23/20 04/25/20 Atenolol [Tenormin] 1 tab PO DAILY 04/25/20 04/25/20 Meloxicam [Mobic] 1 tab PO DAILY 04/25/20 04/25/20 Omeprazole 1 cap PO DAILY 04/25/20 04/25/20 Oxycodone HCl 1 tab PO Q6HR PRN 04/25/20 04/25/20 Amlodipine Besylate [Norvasc] 05/15/20 Dicyclomine HCl 20 mg PO QID PRN #30 tablet 05/15/20 HYDROmorphone [Dilaudid] 1 - 2 tab PO Q4H PRN #20 tablet 05/15/20 Ursodiol [Wendi] 250 mg PO BID #180 tablet 05/15/20 polyethylene glycoL 3350 [Miralax] 05/15/20 Nitrofurantoin [Macrobid] 100 mg PO BID 7 Days #14 capsule 06/14/20 - Allergies Allergies/Adverse Reactions: Allergies Allergy/AdvReac Type Severity Reaction Status Date / Time levofloxacin [From Levaquin] Allergy Anaphylaxis Verified 05/15/20 11:56 - Social History Does the pt smoke?: No Smoking Status: Never smoker Does the pt drink ETOH?: No Does the pt have substance abuse?: No - Immunizations Immunizations are current?: Yes - POLST Patient has POLST: No PD ED PE NORMAL - Vitals Vital signs reviewed: Yes - General General: Alert and oriented X 3, No acute distress - HEENT HEENT: Atraumatic, PERRL, EOMI, Moist mucous membranes - Neck Neck: Supple, no meningeal sign - Cardiac Cardiac: RRR, No murmur, Strong equal pulses - Respiratory Respiratory: No respiratory distress, Clear bilaterally - Abdomen Abdomen: Soft, Non tender, Non distended - Back Back: No CVA TTP, Other (Nephrostomy sites are clean dry and intact, with no skin changes around the sites.) - Derm Derm: Normal color, Warm and dry, No rash - Extremities Extremities: No deformity, No edema, No calf tenderness / cord - Neuro Neuro: Alert and oriented X 3, cryptological technician 2-12 intact, Normal speech - Psych Psych: Normal mood, Normal affect Results - Vitals Vitals: Oxygen O2 Source Room air - Labs Labs: Microbiology 06/14/20 10:46 Urine Culture - Preliminary Urine, Ureter CULTURE IN PROGRESS. RESULTS TO FOLLOW. 06/14/20 10:56 Urine Culture - Preliminary Urine, Ureter CULTURE IN PROGRESS. RESULTS TO FOLLOW. Laboratory Tests 06/14/20 06/14/20 11 10:46 10:56 11:30 WBC 7.3 RBC 3.63 L Hgb 10.9 L Hct 33.2 L MCV 91.5 MCH 30.0 MCHC 32.8 RDW 15.9 H Plt Count 290 MPV 8.5 Neut # (Auto) 5.6 Lymph # (Auto) 0.6 L [place] # (Auto) 0.9 Eos # (Auto) 0.0 Baso # (Auto) 0.0 Absolute Nucleated RBC 0.00 Nucleated RBC % 0.0 Sodium Potassium Chloride Carbon Dioxide Anion Gap BUN Creatinine Estimated GFR (MDRD) Glucose Calcium Total Bilirubin AST ALT Alkaline Phosphatase Total Protein Albumin Globulin Albumin/Globulin Ratio Lipase Urine Color YELLOW DARK YELLOW Urine Clarity CLOUDY HAZY Urine pH 7.0 7.5 Ur Specific [place] 1.020 1.025 Urine Protein 100 H 100 H Urine Glucose (UA) NEGATIVE NEGATIVE Urine Ketones NEGATIVE NEGATIVE Urine Occult Blood SMALL H LARGE H Urine Nitrite NEGATIVE NEGATIVE Urine Bilirubin NEGATIVE NEGATIVE Urine Urobilinogen 0.2 (NORMAL) 0.2 (NORMAL) Ur Leukocyte Esterase LARGE H LARGE H Urine RBC 0-5 TNTC H Urine WBC >25 H >25 H Urine WBC Clumps PRESENT PRESENT Ur Squamous Epith Cells NONE SEEN NONE SEEN Urine Bacteria Moderate H Moderate H Ur Microscopic Review INDICATED INDICATED Urine Culture Comments INDICATED INDICATED 06/14/20 11:30 WBC RBC Hgb Hct MCV MCH MCHC RDW Plt Count MPV Neut # (Auto) Lymph # (Auto) [place] # (Auto) Eos # (Auto) Baso # (Auto) Absolute Nucleated RBC Nucleated RBC % Sodium 135 Potassium 4.2 Chloride 97 L Carbon Dioxide 25 Anion Gap 13.0 BUN 16 Creatinine 1.3 H Estimated GFR (MDRD) 54 L Glucose 101 H Calcium 9.0 Total Bilirubin 0.8 AST 14 ALT 23 Alkaline Phosphatase 110 Total Protein 6.8 Albumin 3.3 Globulin 3.5 Albumin/Globulin Ratio 0.9 L Lipase 17 L Urine Color Urine Clarity Urine pH Ur Specific [place] Urine Protein Urine Glucose (UA) Urine Ketones Urine Occult Blood Urine Nitrite Urine Bilirubin Urine Urobilinogen Ur Leukocyte Esterase Urine RBC Urine WBC Urine WBC Clumps Ur Squamous Epith Cells Urine Bacteria Ur Microscopic Review Urine Culture Comments PD MEDICAL DECISION MAKING - ED course Complexity details: reviewed results, re-evaluated patient, considered differential, d/w patient, d/w family ED course: Patient was worked up and found to have a positive urinalysis. His serum white blood cell count was normal and remainder of work-up was unremarkable. I reviewed the patient's previous records and found that his last 3 culture results have grown Enterofaecalis which is sensitive to nitrofurantoin. The patient did also grow Streptococcus last time he had a urine culture, and this was only tested against to antibiotics, including Bactrim. The patient had most recently been treated for pyelonephritis, approximately a month and a half ago, with IV ceftazidime after being admitted to the [facility] and [facility]. The patient showed no signs of sepsis here and actually appeared quite well, and I did not feel he necessarily to be admitted to the hospital. I discussed with the patient and his that I will give the patient a single dose of Fortaz here, and that he will be put on oral nitrofurantoin at home. We will await his culture results to see if antibiotics need to be changed or if anything needs to be added. The patient's previous sensitivities have also showed responsiveness to fluoroquinolones, but given the patient's underlying kidney issues, I feel that these would not be the best choice for him. We have discussed home management and symptoms, as well as usual indications for return. We have also discussed the need for follow-up. Departure - Departure Disposition: 01 Home, Self Care Clinical Impression: Urinary tract infection Qualifiers: Urinary tract infection type: catheter-associated UTI Indwelling urinary catheter type: unspecified Encounter type: initial encounter Qualified Code(s): T83.511A - Infection and inflammatory reaction due to indwelling urethral catheter, initial encounter Condition: Stable Instructions: ED UTI Pyelonephritis Male Prescriptions: Nitrofurantoin [Macrobid] 100 mg PO BID 7 Days #14 capsule Comments: Labs, overall, look good. Your urinalysis does show signs of infection, and judging by the microbiology reports from your last 3 urine samples prior to today, you have consistently had the same species of enteric faecalis bacteria, which is consistently sensitive to the same oral antibiotics. We have given you a dose of ceftazidime through 9 IV today, as this is what you were on when you had pyelonephritis before. However, you will be placed on nitrofurantoin as an outpatient, as this has consistently been shown in your microbiology reports to be effective against the bacteria you have. Please follow-up with your primary care physician within the next week if you do not find that you are feeling much better. Please follow-up with your oncologist, as well, as you are scheduled to do. Discharge Date/Time: 06/14/20 14:18
[2020-06-14 14:07] VITALS: BP 122/69
== END 2020-06-14 14:18 | disposition home or self-care (01) ==
LOC: ED 10:21
DX: T83.518A Infection and inflammatory reaction due to other urinary catheter, initial encounter (principal); Y84.6 Urinary catheterization as the cause of abnormal reaction of the patient, or of later complication, without mention of misadventure at the time of the procedure; Z93.6 Other artificial openings of urinary tract status; C64.9 Malignant neoplasm of unspecified kidney, except renal pelvis
CPT/HCPCS: 36415; 80053; 81001; 81003; 83690; 85025; 87077; 87086; 87181; 96365; 99284